=== PATIENT | female | born 1975 | race Caucasian/White ===

== ENCOUNTER 2017-09-06 09:30 | Inpatient (IN) | payer BC ==
--- NOTE | 2017-09-06 06:21 | HP ---
HISTORY OF PRESENT ILLNESS: Ms. Villalobos is a 42-year-old woman, who was referred for heavy menst rual bleeding despite oral contraceptive therapy since 05/2017. She had a pelvic ultrasound performe d at outlying clinic for 5.8 cm uterine fibroid and a 4 cm right adnexal region fibroid, which was co nfirmed to be an exophytic fibroid by MRI of the pelvis. Both ovaries were seen on MRI and were norm al in appearance. She also reports a negative Pap smear in 2017. She does not desire fertility. PAST MEDICAL HISTORY: As per HPI. SOCIAL HISTORY: Non-smoker, minimal alcohol use. She is employed and working full-time. CURRENT MEDICATIONS: Loestrin FE 08/07. ALLERGIES: No known drug allergies. FAMILY HISTORY: Essential hypertension in her mother and brother. Malignant female breast cancer no yair in her relatives. PHYSICAL EXAMINATION: VITAL SIGNS: Her blood pressure is 120/80, pulse 75 and regular, respirations 18, height 65 inches, 142 pounds with a BMI of 23.6. HEENT: Within normal limits. CHEST: Clear to auscultation. HEART: Regular rate and rhythm. S1, S2 heart sounds, no murmurs, rubs or gallops. ABDOMEN: Soft, nontender, no palpable masses. PELVIC: Vulva and vagina had no lesions. Cervix had no lesions. There was no cystocele or signific ant rectocele appreciated. Uterus was enlarged at 12 weeks size and retroverted, fullness on the rig ht with tenderness noted. ASSESSMENT AND PLAN: 12-14 sized symptomatic uterine fibroids. Plan is to proceed with robotic tota l laparoscopic hysterectomy. May need to perform ExCITE procedure for fibroid removal through a smal l GelPOINT if unable to pass fibroid to vaginal cuff opening. Risks and benefits of procedure were d iscussed in detail. She is set for surgery on 09/07/2017.
[2017-09-06 16:10] VITALS: BMI 23.1
[2017-09-07] MEDS ORDERED: CEFAZOLIN/Water 2 GM/20 ML SYRINGE ONE (06:11)
[2017-09-07] MEDS ORDERED: Bupivacaine 0.25% HCL 30 ML VIAL ONE (06:43)
[2017-09-07] MEDS ORDERED: Lidocaine 1% w/Epinephrine 1:200K 30 ML VIAL ONE (06:43)
[2017-09-07] MEDS ORDERED: Midazolam HCl 2 mg/2 ml Vial ONE (07:14)
[2017-09-07] MEDS ORDERED: Scopolamine 1.5 mg/72 hour Patch ONE (07:15)
[2017-09-07] MEDS ORDERED: Fentanyl 100 MCG/2 ML VIAL ONE ×2 (07:30→10:12)
[2017-09-07] MEDS ORDERED: Ropivacaine HCl/PF 750 ML in Premix Bag 1 BAG NERVE BLCK SCH (09:15)
[2017-09-07] MEDS ORDERED: Promethazine HCl 25 MG/ML VIAL IM PRN ×2 (09:16→09:42)
[2017-09-07] MEDS ORDERED: Ondansetron HCl/PF 4 MG/2 ML Vial IVP PRN ×2 (09:16→09:42)
[2017-09-07] MEDS ORDERED: Promethazine HCl 25 MG/ML VIAL SLOW IVP PRN (09:16)
[2017-09-07] MEDS ORDERED: Zolpidem Tartrate 5 MG TAB PO PRN (09:42)
[2017-09-07] MEDS ORDERED: Acetaminophen 325 MG TAB PO PRN (09:42)
[2017-09-07] MEDS ORDERED: Simethicone Chewable 80 MG TAB PO PRN (09:42)
[2017-09-07] MEDS ORDERED: diphenhydrAMINE 25 MG CAP PO PRN (09:42)
[2017-09-07] MEDS ORDERED: traMADol HCl 50 MG TAB PO PRN (09:42)
[2017-09-07] MEDS ORDERED: Bisacodyl 10 MG SUPP PR PRN (09:42)
[2017-09-07] MEDS ORDERED: Acetaminophen 1,000 MG in Premix Bag 1 BAG IVPB PRN (09:43)
[2017-09-07] MEDS ORDERED: Acyclovir 400 mg Tablet PO PRN (11:26)
[2017-09-07] MEDS: Lactated Ringer's 1,000 ML IV SCH ×2 (11:58→18:41)
[2017-09-07] MEDS ORDERED: Ketorolac Tromethamine 30 MG/ML VIAL IVP SCH (12:00)
[2017-09-07] MEDS: Morphine 5 MG/ML SYRINGE SLOW IVP PRN ×2 (12:08→16:08)
--- NOTE | 2017-09-07 13:58 | OP ---
DATE OF PROCEDURE: 09/07/2017 PREOPERATIVE DIAGNOSIS: A 42-year-old white female G0 with 12-14 week symptomatic uterine fibroids w ith menorrhagia and pelvic pain. POSTOPERATIVE DIAGNOSIS: A 42-year-old white female G0 with 12-14 week symptomatic uterine fibroids with menorrhagia and pelvic pain. PROCEDURE PERFORMED: Robotic TLH with bilateral salpingectomy with ExCITE procedure for removal of t he uterus. ANESTHESIA: General endotracheal. SURGEON: Paz Nicholas M.D. OCCUPATIONAL NURSE SURGEON: Eleni Barragan M.D. ESTIMATED BLOOD LOSS: 50 mL. COMPLICATIONS: None. ANTIBIOTICS: Two grams Ancef on-call to OR. PATHOLOGY: Uterus, cervix, bilateral fallopian tubes. FINDINGS: 1. Normal-appearing bilateral fallopian tubes and ovaries. 2. Uterus 12-14 week size with approximately 6 cm fundal fibroid and a right fundal subserosal hyper emic 3 x 3 cm fibroid. 3. Clear urine present in De La Torre catheter post-procedure and bilateral ureteral peristalsis visualize d post-procedure. DISPOSITION: To the recovery room stable. DESCRIPTION OF OPERATIVE PROCEDURE: The patient previously received informed consent in regards to amanda loo. She was taken back to the operating room where she received a general endotracheal anestheti c agent without complications. She was placed in the dorsal lithotomy position with Ren stirrups a nd prepped and draped in usual sterile fashion. At this time, a De La Torre catheter was placed. A sidear m speculum was placed in the vagina. The anterior lip of cervix was grasped with single tooth tenacu lum. Uterus sounded to 8 cm. A BIN uterine manipulator 8 cm was placed along with a 3.0 cm cervica l cup. Tag suture was placed in the cervix to use the later for manipulation of the uterus intraabdo minally. Next, attention was turned to the abdomen. The umbilical incision was marked to be 2.5 cm vertically for placement of the Carmine GelPOINT retractor. An incision in the umbilicus was made and a Veress needle was entered into the peritoneal cavity. The abdomen was insufflated to a patient pr essure of 15, approximately 4 liters carbon dioxide gas and Veress needle was removed. A 12 mm troca r was then placed and laparoscope was introduced through a trocar sleeve confirming proper entry. Th e pelvis had been inspected with previously mentioned findings. The fascia was then incised over the trocar sleeve. Approximately 2.5 cm fascial defect was then made. This allowed for the GelPOINT to be placed in the usual fashion. The ACES tissue containment bag had previously been repaired in accordion roll fashion and tagged and tied, keeping the accordion folded position x2 and a loop of silk had been placed opposite the tag s uture to be utilized for closure once the tissue specimen had been placed. The ACES tissue containme nt bag was then placed in the patient's left upper quadrant. The GelPOINT was then reattached and th e trocars were placed with laparoscope and then the assistant analyst port through the GelPOINT. The scope w as then placed through the trocar sleeve. An additional bilateral lower quadrant 8 mm trocars were p laced under laparoscopic guidance. The patient was placed in deep Trendelenburg and robot was docked in usual fashion. I then proceeded to carry out the procedure from the operative console where my assistants remained a t the bedside. The uterus was elevated from the pelvis. The left fallopian tube was grasped by my a ssistchani with an atraumatic grasper. The mesosalpinx was incised with monopolar scissors and the tub e was removed at the proximal portion with the bipolar fenestrated cautery and excised. My assistant analyst removed the tubes through the assistant analyst port. The left utero-ovarian ligament was then cauterized w ith bipolar fenestrated cautery and incised with monopolar scissors. Serial coagulation and transect ion of the broad ligament, hugging close uterine specimen was carried out until the left round ligame nt was reached. It was coagulated and transected. Anterior leaf of the broad ligament was entered d issecting the vesicouterine peritoneum in a layering technique past the cervical vaginal angle that w as readily visible through the cervical cup indention. Uterine vessels were skeletonized anteriorly and posteriorly, and then cauterized an internal cervical os region. This was repeated in a likewise fashion on the patient's right side again excising the fallopian tube and removing it through the tr ocar assistant analyst port sleeve cauterizing the right uteroovarian ligament, transecting it into broad lig ament down to the right round ligament again coagulating and transecting it and entering the anterior leaf of the broad ligament creating the vesicouterine peritoneal incision in a layering technique di ssecting the bladder atraumatically past the cervical cup. Uterine vessels again were coagulated and transected after skeletization. The anterior colpotomy was then created from 12 to 3 and 12 to 9 o' clock position with the monopolar scissors and then the posterior colpotomy was completed from 6 to 3 and 6 to 9 in similar fashion. The uterine specimen was then taken off the BIN uterine manipulator and placed in the posterior cul-de-sac. Pneumoperitoneum was contained in the vagina and then monop olar scissor was switched out with Langley needle refrigerated national truck driver. Stratafix was brought in through the operati ve field by my assistant analyst. The vaginal cuff was then closed starting in the right angle and full thic kness closure from right angle through the midline of the vaginal cuff, the left angle back towards t he right angle in a double layer closure. Good hemostasis was confirmed. The pelvis was irrigated a nd suctioned. Hemostasis on the pedicle sites was confirmed. Bilateral ureteral peristalsis was vis ualized. The tissue containment bag was then brought down into the pelvis and oriented properly. Th e stay ties keeping the bag folded were cut by my assistant analyst under direct visualization. The uterine specimen was then placed in the tissue containment bag and then the stay suture was brought up by arslan peña with bipolar fenestrated and the uterus was tucked down into the bag. The edges of the bag were then brought up circumferentially and then the stay suture was then brought through the previously ti ghtly closing the bag in a purse-like fashion. The end of the suture was then grasped by my assistan t and pulled up through the trocar sleeve and the GelPOINT securing closure of the tissue with inside the bag. The specimen was then moved out of the pelvis and then we placed the ON-Q catheter pump by my assistant analyst puncturing through the lower mid portion of the lower abdomen and then placing the suck er hose with ON-Q pump down in the posterior cul-de-sac for later pain management. The robot was the n undocked and the tissue containment bag was brought up through [facility] [facility] with specimen inside the ba g with confirmation. The Carmine O retractor of the GelPOINT was then taken out and then replaced wit h inside the tissue containment bag for morcellation process. The uterus was grasped at the cervix w eunice Hernández thyroid clamp and with the ExCITE morcellation technique, the tissue was extracted in its e ntirety with preservation of the containment of the bag noted. The tissue containment bag was then r emoved. The bowel below the area of field of operation was confirmed to be without any injury under direct visualization. The Carmine O retractor was removed. The fascial defect and umbilicus was clos ed with 0 Vicryl suture in running continuous fashion with good approximation. Subcuticular stitch w as then placed. Additional Marcaine with epinephrine was placed for postanesthesia pain management, and the remainder of the other two trocar sites was closed with 4-0 Monocryl with Dermabond. The vag inal cuff was checked and it was noted to be hemostatic vaginally. The patient was awakened from ane sthesia and transferred to the recovery room in stable condition.
[2017-09-07] MEDS ORDERED: ePHEDrine/0.9% NaCl/PF SYRINGE 50 mg/10 ml ONE (16:20)
[2017-09-07] MEDS ORDERED: Lidocaine 1% PF 5 ML VIAL ONE (16:20)
[2017-09-07] MEDS ORDERED: Glycopyrrolate 0.2 MG/ML 5 ML SYRINGE ONE (16:20)
[2017-09-07] MEDS ORDERED: PROPOFOL 200 MG/20 ML VIAL ONE (16:20)
[2017-09-07] MEDS ORDERED: Dexamethasone 20 MG/5 ML VIAL ONE (16:20)
[2017-09-07] MEDS ORDERED: Ondansetron HCl/PF 4 MG/2 ML Vial ONE (16:20)
[2017-09-07] MEDS ORDERED: Metoclopramide HCl 10 MG/2 ML VIAL ONE (16:20)
[2017-09-07] MEDS: traMADol HCl 50 MG TAB PO PRN ×2 (19:59→21:50)
[2017-09-08] MEDS: Lactated Ringer's 1,000 ML IV SCH ×2 (06:06→07:16)
[2017-09-08 06:13] LABS: Hemoglobin 12.8 g/dL (12.0-16.0); Mean Corpuscular HGB CONC 33.8 g/dL (32.0-36.0); Mean Corpuscular Hemoglobin 32.2 pg (27.0-31.0); Mean Corpuscular Volume 95.3 fl (81.0-99.0); Mean Platelet Volume 9.1 fL (7.4-10.4); Platelet Count 235 thou/uL (130-400); Red Blood Cell (RBC) Count 3.96 mill/uL (4.20-5.40)
[2017-09-08 11:29] VITALS: BP 124/78; TEMP 99
[2017-09-08] MEDS: traMADol HCl 50 MG TAB PO PRN (13:37)
--- NOTE | 2017-09-10 11:31 | DIS ---
DATE OF ADMISSION: 09/07/2017 DATE OF DISCHARGE: 09/08/2017 DIAGNOSES: Symptomatic 12-14 week uterine fibroids, menorrhagia with pelvic pain and dysmenorrhea. SUMMARY OF HOSPITAL COURSE: Ms. Villalobos is a 42-year-old white female G0, who had symptomatic 12 -14 week uterine fibroids. She underwent an uncomplicated robotic total laparoscopic hysterectomy, b ilateral salpingectomy with removal of the tissue, uterus through the ExCITE procedure. Postoperativ adali, the patient did well. She had adequate pain control with the use the ON-Q pump and tramadol as needed. Her vitals remained stable. Her postoperative hematocrit was 37.7%. Pathology revealed danyel ign uterine fibroids. No endometrial cervical pathology noted and unremarkable, normal fallopian tub es. She was discharged home on tramadol prescriptions 50 q.6 hours p.r.n. pain, [id number] ibu profen as needed and she has follow up 2 and 6 weeks postop.
== END 2017-09-08 14:49 | disposition home or self-care (01) | DRG 743 ==
LOC: SURG A 09-07 06:00 → 3SE 09-07 12:01
PROVIDERS: ADMIT Obstetrics & Gynecology; ATTEND Obstetrics & Gynecology
PROC: 0UT94ZZ Resection of Uterus, Percutaneous Endoscopic Approach (ICD-10-PCS; principal; 2017-09-07)
PROC: 0UT74ZZ Resection of Bilateral Fallopian Tubes, Percutaneous Endoscopic Approach (ICD-10-PCS; 2017-09-07)
PROC: 8E0W4CZ Robotic Assisted Procedure of Trunk Region, Percutaneous Endoscopic Approach (ICD-10-PCS; 2017-09-07)
DX: D25.2 Subserosal leiomyoma of uterus (principal); D25.1 Intramural leiomyoma of uterus; N92.0 Excessive and frequent menstruation with regular cycle; N94.6 Dysmenorrhea, unspecified
CPT/HCPCS: 36415; 85027; 88307; J2270; J0131; J1100; J2001; J2250; J2405; J2704; J2765; J2795; J3010; S0020

== ENCOUNTER 2017-09-06 15:24 | Outpatient (CLI) | payer BC ==
[2017-09-06 17:31] LABS: Hemoglobin 13.9 g/dL (12.0-16.0); Mean Corpuscular HGB CONC 33.7 g/dL (32.0-36.0); Mean Corpuscular Volume 94.9 fl (81.0-99.0); Mean Platelet Volume 9.7 fL (7.4-10.4); Platelet Count 295 thou/uL (130-400); RBC Distribution Width 11.1 % (11.5-14.5); Red Blood Cell (RBC) Count 4.36 mill/uL (4.20-5.40); White Blood Cell (WBC) Count 7.9 thou/uL (4.8-10.8)
[2017-09-06 17:37] LABS: BHCG - Serum Negative (NEGATIVE); Pregs Control Background? CLEAR/WHITE (CLR/WHITE); Pregs Control Bar Appear? YES (CONTROL BAR)
== END 2017-09-06 15:25 | disposition home or self-care (01) ==
LOC: LABBT 15:24
PROVIDERS: ATTEND Obstetrics & Gynecology
DX: Z01.812 Encounter for preprocedural laboratory examination (principal); D25.9 Leiomyoma of uterus, unspecified; N92.0 Excessive and frequent menstruation with regular cycle; R10.2 Pelvic and perineal pain
CPT/HCPCS: 84703; 85027; 86850; 86900; 86901